=== PATIENT | male | born 1950 | race Caucasian/White ===

== ENCOUNTER → 2017-09-28 | Outpatient (CLI) | payer MEDICARE, OTHER ==
[2017-09-28 17:00] LABS: BASO % 0.4 % (0.0-1.0); EOS # 0.1 10^3/uL (0.0-0.50); EOS % 0.7 % (0.0-3.0); HEMATOCRIT 42.8 % (42.0-52.0); HEMOGLOBIN 14.3 g/dl (13.5-17.5); IMMATURE GRANULOCYTE % 0.4 % (0-3.0); LYMPH # 2.4 10^3/uL (1.5-4.5); LYMPH % 29.1 % (24.0-44.0); MEAN CORPUSCULAR HEMOGLOBIN 29.2 pg (27.0-33.0); MEAN CORPUSCULAR HGB CONC 33.4 g/dl (32.0-36.5); MEAN CORPUSCULAR VOLUME 87.5 fl (80.0-96.0); MONO # 0.9 10^3/uL (0.0-0.8); MONO % 10.8 % (0.0-5.0); NEUTROPHILS # 4.8 10^3/uL (1.8-7.7); NEUTROPHILS % 58.6 % (36.0-66.0); PLATELET COUNT, AUTOMATED 251 10^3/uL (150-450); RED BLOOD COUNT 4.89 10^6/uL (4.30-6.10); RED CELL DISTRIBUTION WIDTH 13.5 % (11.5-14.5); WHITE BLOOD COUNT 8.2 10^3/uL (4.0-10.0)
[2017-09-28 17:35] LABS: URIC ACID 4.6 MG/DL (3.5-7.2)
== END ==
LOC: M WUC 11:57
DX: M79.671 Pain in right foot (principal)
CPT/HCPCS: 84550

== ENCOUNTER 2018-05-14 21:57 | Emergency (ER) | payer MEDICARE, OTHER ==
[~2018-05-14] VITALS: Ht 162.6 cm; Wt 50.0 kg
[2018-05-14 22:34] LABS: BASO # 0.1 10^3/uL (0.0-0.2); BASO % 0.5 % (0.0-1.0); EOS # 0.1 10^3/uL (0.0-0.50); HEMATOCRIT 40.9 % (42.0-52.0); HEMOGLOBIN 14.4 g/dl (13.5-17.5); LYMPH # 3.3 10^3/uL (1.5-4.5); LYMPH % 34.3 % (24.0-44.0); MEAN CORPUSCULAR HEMOGLOBIN 30.4 pg (27.0-33.0); MEAN CORPUSCULAR HGB CONC 35.2 g/dl (32.0-36.5); MEAN CORPUSCULAR VOLUME 86.5 fl (80.0-96.0); MONO % 10.4 % (0.0-5.0); NEUTROPHILS # 5.1 10^3/uL (1.8-7.7); NEUTROPHILS % 53.5 % (36.0-66.0); PLATELET COUNT, AUTOMATED 231 10^3/uL (150-450); RED BLOOD COUNT 4.73 10^6/uL (4.30-6.10); WHITE BLOOD COUNT 9.6 10^3/uL (4.0-10.0)
[2018-05-14 22:47] LABS: CALCIUM LEVEL 8.7 MG/DL (8.8-10.2); CREATININE FOR GFR 1.29 MG/DL (0.70-1.30); MB/CK RELATIVE INDEX 0.72 (< OR =4); POTASSIUM SERUM 3.5 MEQ/L (3.5-5.1); TROPONIN I 0.08 NG/ML (< 0.10)
[2018-05-14] MEDS ORDERED: SIMV40TA2 PO (22:58)
[2018-05-14] MEDS ORDERED: LEVO112T25 PO (22:58)
[2018-05-14] MEDS ORDERED: OMEP20CA3 PO (22:58)
[2018-05-14] MEDS ORDERED: NITR4TASL SL (22:58)
[2018-05-14] MEDS ORDERED: IRBESARTAN-HCTZ (22:58)
[2018-05-14] MEDS ORDERED: GUAI400T9 PO (22:58)
[2018-05-14] MEDS ORDERED: CARV6.25 (22:58)
[2018-05-14] MEDS ORDERED: IRBE150T14 PO (23:56)
--- NOTE | 2018-05-15 03:59 | REP ---
Clinical: Chest pain . Comparison: None . Technique: AP and lateral. Findings: The mediastinum and cardiac silhouette are normal. The lung crabtree are clear and without acute consolidation, effusion, or pneumothorax. The skeletal structures are intact and normal. Impression: 1. No acute cardiopulmonary process. Electronically Signed by Jared Hale MD 05/15/2018 03:51 A
[2018-05-15 06:01] LABS: MB/CK RELATIVE INDEX 0.85 (< OR =4); TROPONIN I 0.05 NG/ML (< 0.10)
[2018-05-15 07:16] VITALS: BP 138/73
--- NOTE | 2018-05-15 08:47 | ECGEPIP ---
Stationary ECG Study [facility] - ED Test Date: 2018-05-14 Pat Name: LEAH TOBAR Department: Room: - Gender: M Clinical Care Coordinator: : 1950 Requested By: AAKASH Pimentel Order Number: [id number] Reading MD: Niki Louis Measurements Intervals [place] Rate: 84 P: 30 CT: 188 QRS: -24 QRSD: 95 T: 48 QT: 377 QTc: 446 Interpretive Statements SINUS RHYTHM INDETERMINATE AXIS PATTERN CONSISTENT WITH PULMONARY DISEASE INCOMPLETE RIGHT BUNDLE BRANCH BLOCK INFERIOR MYOCARDIAL INFARCTION, OF INDETERMINATE AGE NO PRIOR FOR COMPARISON Electronically Signed On 05-15-2018 8:47:26 EST by Niki Louis
--- NOTE | 2018-05-15 08:49 | ECGEPIP ---
Stationary ECG Study [facility] - ED Test Date: 2018-05-15 Pat Name: LEAH TOBAR Department: Room: - Gender: M Director Of Nurses Registry: [facility] : 1950 Requested By: AAKASH Pimenetl Order Number: [id number] Reading MD: Niki Louis Measurements Intervals [place] Rate: 58 P: 21 [place]: 205 QRS: -18 QRSD: 102 T: 56 QT: 418 QTc: 411 Interpretive Statements SINUS BRADYCARDIA INFERIOR MYOCARDIAL INFARCTION, OF INDETERMINATE AGE INCOMPLETE RIGHT BUNDLE BRANCH BLOCK DECREASED RATE 05/14/18 22:03 Electronically Signed On 05-15-2018 8:48:42 EST by Niki Louis
== END 2018-05-15 07:17 | disposition home or self-care (01) ==
LOC: M ED 21:57
DX: R07.9 Chest pain, unspecified (principal); R06.02 Shortness of breath; R11.0 Nausea; I25.10 Atherosclerotic heart disease of native coronary artery without angina pectoris; I25.2 Old myocardial infarction; E11.9 Type 2 diabetes mellitus without complications; Z79.899 Other long term (current) drug therapy

== ENCOUNTER → 2018-10-26 | Outpatient (CLI) | payer MEDICARE, OTHER ==
[~2018-10-26] MED LIST: CARV6.25; GUAI400T9 PO; IRBE150T14 PO; IRBESARTAN-HCTZ; LEVO112T25 PO; METHACHOLINE KIT (J7674) INH ONE; NITR4TASL SL; OMEP20CA4 PO; SIMV40TA2 PO
--- NOTE | 2018-10-26 09:39 | PFTRPT ---
Height: 60.00 Inches Weight: 215.00 Lbs BSA: 1.92 Diagnosis: R05 DATE OF PROCEDURE: 10/26/2018 ORDERED BY: NICK Novak INTERPRETATION: Study of excellent technical quality. Under protocol, methacholine was administered. Even after a maximum dose of 25 mg or 188.875 CDUs, no provocation dose ever achieved. Flow rates did return to baseline post bronchodilator administration. IMPRESSION: Negative methacholine challenge study. MTDD
== END ==
LOC: M CARPUL 08:28
PROVIDERS: ATTEND Nurse Practitioner Family
DX: R05 Cough (principal)
CPT/HCPCS: 94070; 95070; J7674

== ENCOUNTER → 2022-05-14 | Outpatient (REF) | payer MEDICARE, OTHER ==
[~2022-05-14] MED LIST changes: -METHACHOLINE KIT (J7674) INH ONE; +OMEP1CAP73 PO; -OMEP20CA4 PO; -SIMV40TA2 PO; +SIMV40TA20 PO
== END ==
LOC: M SFHCDERM 14:14
PROVIDERS: ATTEND Dermatology
DX: L72.0 Epidermal cyst (principal); L57.9 Skin changes due to chronic exposure to nonionizing radiation, unspecified